=== PATIENT | female | born 1950 | race Caucasian/White ===

== ENCOUNTER → 2017-08-25 | Outpatient (CLI) | payer OTHER, MEDICARE ==
[~2017-08-25] VITALS: Ht 157.5 cm; Wt 66.0 kg
[~2017-08-25] MED LIST: CENTRUM SILVER1 EAC4 PO; LOSARTAN POTASS50 MG PO; OMEGA-3 FLAXS1000 MG PO; PRAVACHOL20 MG PO; TUMS500 MG PO; VITAMIN D31000 UNIT PO; VITAMIN E400 UNIT PO
[2017-08-25 09:12] VITALS: BP 138/74
== END | disposition home or self-care (01) ==
LOC: IVINF 07:00
DX: M85.80 Other specified disorders of bone density and structure, unspecified site (principal)
CPT/HCPCS: 96365; J3489